=== PATIENT | male | born 1950 | race Caucasian/White ===

== ENCOUNTER 2018-06-21 12:15 | Emergency (ER) | payer MEDICARE ==
[~2018-06-21] VITALS: Ht 185.4 cm; Wt 90.9 kg
[2018-06-21 12:19] VITALS: Ht 185.4 cm; Wt 90.9 kg
[2018-06-21 15:01] VITALS: BP 124/76
== END 2018-06-21 15:02 ==
LOC: D.ER 12:15
DX: K94.29 Other complications of gastrostomy (principal); I25.10 Atherosclerotic heart disease of native coronary artery without angina pectoris